=== PATIENT | female | born 1995 | race Caucasian/White ===

== ENCOUNTER → 2017-08-19 | Outpatient (CLI) | payer OTHER ==
--- NOTE | 2017-08-20 09:08 | REP ---
Clinical: Follow-up for placenta previa . Comparison: None available . Findings: Examination demonstrates a single live advanced intrauterine in cephalic presentation. motion is identified by technologist. Placenta is noted anteriorly and grade II, the placental edge is approximately 1.8 cm from the closed internal os without evidence for placenta previa or abruption. Amniotic fluid volume is normal. Cervix measures 4.5 cm in length and appears closed. No evidence for nuchal cord. Gestational age by LMP 32 weeks 1 day with JANES 10/13/2017 . FHR equals 141 beats per minute. Amniotic fluid index equals 17.0 cm (8.6 724 pointed). Umbilical cord SD ratio equals 2.67 (2.45 - 3.45). Impression: Anterior grade II placenta with tip approximately 1.8 cm from the closed internal os. Signed by Merrill Hinojosa MD 08/20/2017 08:59 A
== END ==
LOC: M RAD 18:10
PROVIDERS: ATTEND Obstetrics & Gynecology Obstetrics
DX: O44.03 Complete placenta previa NOS or without hemorrhage, third trimester (principal); Z3A.32 32 weeks gestation of pregnancy